=== PATIENT | female | born 1945 | race Two or more races ===

== ENCOUNTER 2025-03-17 01:39 | Inpatient (IN) | payer MEDICARE ==
[~2025-03-17] VITALS: Ht 152.4 cm; Wt 67.6 kg
[2025-03-17] MEDS ORDERED: OLANZAPINE 10 MG VIAL IM ONE (02:32)
[2025-03-17 02:36] LABS: PLATELET COUNT (AUTO) 221 K/uL (150-450); RED BLOOD CELL COUNT(AUTO) 3.84 MIL/uL (4.0-5.2); RED CELL DISTRIBUTION WIDTH 13.8 % (11.5-15.0); WHITE BLOOD COUNT (AUTO) 5.8 K/uL (4.3-11.0)
[2025-03-17 02:41] LABS: APPEARANCE,URINE CLEAR (CLEAR); BLOOD, URINE 2+ Ery/uL (NEGATIVE); LEUKOCYTE ESTERASE ,URINE 1+ (NEGATIVE); NITRITE, URINE NEGATIVE (NEGATIVE); UGLUCOSE NEGATIVE (NEGATIVE)
[2025-03-17 02:48] LABS: ADD URINE CULTURE YES
[2025-03-17 02:49] LABS: ASPARTATE AMINOTRANSFERASE 24 U/L (15-37); CALCIUM, SERUM 8.8 mg/dL (8.5-10.1); CREATININE 1.0 mg/dL (0.6-1.3); SODIUM SERUM 143 mmol/L (136-145); TOTAL PROTEIN, SERUM 8.1 g/dL (6.4-8.2); UREA NITROGEN, BLOOD 24 mg/dL (7-18)
[2025-03-17 02:54] LABS: AMPHETAMINE, URINE NEGATIVE (NEGATIVE); BARBITURATE, URINE NEGATIVE (NEGATIVE); BENZODIAZEPINE, URINE NEGATIVE (NEGATIVE); CANNABINOID, URINE NEGATIVE (NEGATIVE); COCCAINE, URINE NEGATIVE (NEGATIVE); OPIATE, URINE NEGATIVE (NEGATIVE)
[2025-03-17] MEDS: OLANZAPINE 10 MG VIAL IM ONE (03:00)
[2025-03-17] MEDS: NITROFURANTOIN/MONOHYDRATE MACROCRYSTALS 100 MG CAPSULE PO ONE (03:27)
[2025-03-17] MEDS ORDERED: NITROFURANTOIN/MONOHYDRATE MACROCRYSTALS 100 MG CAPSULE ONE (03:27)
[2025-03-17 03:30] VITALS: O2SAT 96
[2025-03-17] MEDS ORDERED: CEFU500T66 PO (07:04)
[2025-03-17] MEDS ORDERED: MAG HYDROX/AL HYDROX/SIMETH 30 ML UDC PO PRN (14:00)
[2025-03-17] MEDS ORDERED: MAGNESIUM HYDROXIDE 30 ML UDC PO PRN (14:00)
[2025-03-17] MEDS ORDERED: ACETAMINOPHEN 325 MG TABLET PO PRN (14:00)
[2025-03-17] MEDS ORDERED: ZOLPIDEM TARTRATE 5 MG TABLET PO PRN (14:00)
[2025-03-17] MEDS: BLOOD SUGAR DIAGNOSTIC 1 EACH STRIP IN ONE (15:11)
[2025-03-17 16:08] VITALS: BP 145/70; TEMP 97.6; O2SAT 98
[2025-03-17] MEDS: METHOCARBAMOL (500MG) 500 MG TABLET PO PRN (17:47)
[2025-03-17] MEDS: NITROFURANTOIN/MONOHYDRATE MACROCRYSTALS 100 MG CAPSULE PO SCH (20:51)
[2025-03-18 08:00] VITALS: BP 145/88; TEMP 98.1; O2SAT 97
[2025-03-18 09:18] LABS: ASPARTATE AMINOTRANSFERASE 27.0 U/L (15-37); CALCIUM, SERUM 9.3 mg/dL (8.5-10.1); CREATININE 1.0 mg/dL (0.6-1.3); SODIUM SERUM 144.0 mmol/L (136-145); TOTAL PROTEIN, SERUM 8.3 g/dL (6.4-8.2); UREA NITROGEN, BLOOD 24.0 mg/dL (7-18)
[2025-03-18 09:33] LABS: LDL 62.0 mg/dL (0-99)
[2025-03-18 16:00] VITALS: BP 146/68; TEMP 98; O2SAT 96
[2025-03-18 20:17] VITALS: BP 122/65; TEMP 98.2; O2SAT 96
[2025-03-19 08:00] VITALS: BP 114/72; TEMP 97.7; O2SAT 97
[2025-03-19] MEDS: OXCARBAZEPINE 150 MG TABLET PO SCH (14:24)
[2025-03-19 16:10] VITALS: BP 114/67; TEMP 97.8; O2SAT 98
[2025-03-19] MEDS: QUETIAPINE FUMARATE 25 MG TABLET PO SCH (20:33)
[2025-03-19 21:44] VITALS: BP 109/64; TEMP 97.9; O2SAT 98
[2025-03-19] MEDS: ZOLPIDEM TARTRATE 5 MG TABLET PO PRN (23:02)
[2025-03-20 08:00] VITALS: BP 113/88; TEMP 98; O2SAT 98
[2025-03-20 21:06] VITALS: BP 128/74; TEMP 98; O2SAT 97
[2025-03-20] MEDS ORDERED: TOFA11TA PO (21:57)
[2025-03-20] MEDS ORDERED: METHOCARBAMOL (500MG) 500 MG TABLET PO PRN (22:00)
[2025-03-21] MEDS: TOFACITINIB CITRATE 11 MG PO SCH (09:00)
[2025-03-21 16:00] VITALS: BP 142/88; TEMP 97.9; O2SAT 96
[2025-03-21 20:31] VITALS: BP 114/59; TEMP 97.9; O2SAT 97
[2025-03-21] MEDS: MIRTAZAPINE 15 MG TABLET PO SCH (21:04)
[2025-03-22 08:00] VITALS: BP 105/74; TEMP 98.1; O2SAT 99
[2025-03-22 16:00] VITALS: BP 129/69; TEMP 98.1; O2SAT 96
[2025-03-22 20:05] VITALS: BP 127/69; TEMP 98.1; O2SAT 96
[2025-03-23 08:00] VITALS: BP 142/73; TEMP 98.6; O2SAT 98
[2025-03-23 16:00] VITALS: BP 128/62; TEMP 98.2; O2SAT 97
[2025-03-23 20:11] VITALS: BP 119/60; TEMP 98.2; O2SAT 97
[2025-03-24 08:00] VITALS: BP 150/85; TEMP 97.8; O2SAT 98
[2025-03-24 16:00] VITALS: BP 115/85; TEMP 98.2; O2SAT 97
[2025-03-25 08:00] VITALS: BP 117/57; TEMP 97.7; O2SAT 99
[2025-03-25] MEDS: TOFACITINIB 11 MG PO SCH (09:03)
[2025-03-25 16:00] VITALS: BP 133/68; TEMP 98; O2SAT 100
[2025-03-25 21:48] VITALS: BP 130/67; TEMP 98.1; O2SAT 100
[2025-03-26 08:00] VITALS: BP 162/85; TEMP 97.9; O2SAT 95
[2025-03-26] MEDS: QUETIAPINE FUMARATE 25 MG TABLET PO PRN (08:20)
== END 2025-03-26 13:30 | DRG 885 ==
LOC: ER 01:43 → GPS 13:25
PROVIDERS: ADMIT Psychiatry & Neurology Psychiatry
DX: F39 Unspecified mood [affective] disorder (principal); F03.92 Unspecified dementia, unspecified severity, with psychotic disturbance; F03.93 Unspecified dementia, unspecified severity, with mood disturbance; F03.911 Unspecified dementia, unspecified severity, with agitation; F29 Unspecified psychosis not due to a substance or known physiological condition; E53.8 Deficiency of other specified B group vitamins; E55.9 Vitamin D deficiency, unspecified; I10 Essential (primary) hypertension; E78.5 Hyperlipidemia, unspecified; F32.A Depression, unspecified; R79.89 Other specified abnormal findings of blood chemistry
CPT/HCPCS: 36415; 80048-TC; 80053-TC; 80061-TC; 80076-TC; 81001; 82962-TC; 83735-TC; 84439-TC; 84443-TC; 85025-TC; 87081-TC; 87086-TC; 93970-TC; 97112-TC; 97116-TC; 97530-TC; J3490